=== PATIENT | male | born 1985 ===

== ENCOUNTER 2016-06-16 03:53 | Emergency (ER) | payer SELFPAY ==
--- NOTE | 2016-06-16 04:35 | ED PDOC ---
HPI: Eye Injury/Pain Time Seen by Provider: 06/16/16 04:11 Chief Complaint (Nursing): Eye Problem Chief Complaint (Provider): Eye pain History Per: Patient Additional Complaint(s): Pt. states 2 days ago while at work he was attempting to make a hole on the ceiling with a drill when debris flew into his L eye. Reports having pain to the eye since along with light sensitivity. Denies visual changes, blunt trauma , hx of DM. Past Medical History Reviewed: Historical Data, Nursing Documentation, Vital Signs Vital Signs: Last Vital Signs Temp 98 F 06/16/16 04:11 Pulse 74 06/16/16 04:11 Resp 18 06/16/16 04:11 BP 118/65 06/16/16 04:11 Pulse Ox 100 06/16/16 04:11 - Family History Family History: States: No Known Family Hx - Home Medications Home Medications: Ambulatory Orders Medication Instructions Recorded Ibuprofen [Motrin Tab] 1 tab PO Q8 PRN #21 tab 05/21/15 Erythromycin 0.5% [Erythromycin] 1 applic LEFTEYE Q6 #1 tube 06/16/16 - Allergies Allergies/Adverse Reactions: Allergies Allergy/AdvReac Type Severity Reaction Status Date / Time No Known Allergies Allergy Verified 05/21/15 10:17 Review of Systems ROS Statement: Except As Marked, All Systems Reviewed And Found Negative Eyes: Positive for: Pain, Conjunctivae Inflammation Physical Exam - Physical Exam Appears: Positive for: Well, Non-toxic, No Acute Distress Head Exam: Positive for: ATRAUMATIC, NORMAL INSPECTION, NORMOCEPHALIC Skin: Positive for: Normal Color, Warm. Negative for: Rash Eye Exam: Positive for: EOMI, PERRL, Conjunctival injection (L eye), Other ( fluoroscein uptake at 12 o'clock position of L eye; no FB sensation). Negative for: Nystagmus, Periorbital swelling, Periorbital tenderness - ECG O2 Sat by Pulse Oximetry: 100 Disposition - Clinical Impression Clinical Impression: Corneal abrasion - Patient ED Disposition Is Patient to be Admitted: No - Disposition Referrals: Dionicio Viera MD [Staff Provider] - Disposition: Routine/Home Disposition Time: 04:36 Condition: STABLE Prescriptions: Erythromycin 0.5% [Erythromycin] 1 applic LEFTEYE Q6 #1 tube Instructions: Corneal Abrasion (ED)
[2016-06-16 04:45] VITALS: BP 118/65; PULSE 74; RESP 18; TEMP 98; O2SAT 100
== END 2016-06-16 04:42 | disposition home or self-care (01) ==
LOC: H.ER 03:53
DX: S05.90XA Unspecified injury of unspecified eye and orbit, initial encounter (principal); W22.8XXA Striking against or struck by other objects, initial encounter; Y99.0 Civilian activity done for income or pay